=== PATIENT | female | born 1995 | race Two or more races ===

== ENCOUNTER → 2022-08-12 | Emergency (ER) | payer OTHER ==
[~2022-08-12] VITALS: Ht 154.9 cm; Wt 79.4 kg
== END | disposition left against medical advice (07) ==
LOC: ER 20:55
DX: J06.9 Acute upper respiratory infection, unspecified (principal); R50.9 Fever, unspecified; Z20.828 Contact with and (suspected) exposure to other viral communicable diseases

== ENCOUNTER 2023-01-19 14:43 | Emergency (ER) | payer OTHER ==
[~2023-01-19] VITALS: Ht 154.9 cm; Wt 83.5 kg
== END 2023-01-19 19:08 | disposition home or self-care (01) ==
LOC: ER 14:43
DX: J10.1 Influenza due to other identified influenza virus with other respiratory manifestations (principal); Z20.822 Contact with and (suspected) exposure to COVID-19

== ENCOUNTER 2023-02-11 15:25 | Emergency (ER) | payer OTHER ==
[~2023-02-11] VITALS: Ht 154.9 cm; Wt 83.5 kg
== END 2023-02-11 21:04 | disposition home or self-care (01) ==
LOC: ER 15:25
DX: K52.89 Other specified noninfective gastroenteritis and colitis (principal); A08.8 Other specified intestinal infections; Z20.822 Contact with and (suspected) exposure to COVID-19